=== PATIENT | female | born 1955 | race Caucasian/White ===

== ENCOUNTER 2023-11-09 06:22 | Outpatient (REF) | payer OTHER, SELFPAY ==
[2023-11-09 06:30] LABS: MANUAL DIFF FLAG NO
[2023-11-09 06:41] LABS: Basophils Percent Auto 0.3 % (0-2); Eosinophils Percent Auto 0.3 % (0-4); Hematocrit 31.5 % (37.0-47.0); Hemoglobin 10.2 g/dl (12.0-16.0); Imm Gran Abs Auto 0.24 X10*3/uL (0.00-0.03); Imm Gran Pct Auto 2.8 % (0.0-0.4); Lymphocytes Absolute Auto 1.4 X10*3/uL (1.2-4.9); Lymphocytes Percent Auto 16.1 % (20-40); Mean Corpuscular HGB Conc 32.4 g/dl (31.0-35.0); Mean Corpuscular Hemoglobin 33.8 pg (27.0-33.0); Mean Corpuscular Volume 104.3 fL (80.0-98.0); Mean Platelet Volume 9.9 fL (9.4-12.3); Monocytes Absolute Auto 0.9 X10*3/uL (0.1-1.2); Monocytes Percent Auto 10.3 % (2-11); Neutrophils Percent Auto 70.2 % (45-73); Platelet Count 186 X10*3/uL (160-400); Red Blood Count 3.02 X10*6/uL (4.20-5.50); Red Cell Distribution Width 17.7 % (11.0-16.0); White Blood Count 8.6 X10*3/uL (4.8-10.8)
[2023-11-09 07:47] LABS: Alanine Aminotransferase < 5 U/L (0-31); Albumin Level 2.6 g/dL (3.5-5.0); Alkaline Phosphatase 142 U/L (39-117); Anion Gap 16 (12-20); Aspartate Amino Transferase 13 U/L (5-31); Bilirubin Total 0.7 mg/dL (0.0-1.0); Blood Urea Nitrogen 31 mg/dL (9-16); Calcium 8.3 mg/dL (8.4-10.2); Carbon Dioxide 28 mmol/L (22-29); Chloride 98 mmol/L (96-108); Glucose Random 78 mg/dL (60-115); Potassium 3.8 mmol/L (3.3-5.1); Sodium 138 mmol/L (135-145); Total Protein 4.8 g/dL (6.5-8.0)
[2023-11-09 07:53] LABS: Estimated Glomerular Filt Rate 7
[2023-11-09 08:05] LABS: Estimated Average Glucose 82 mg/dL; Hemoglobin A1c % 4.5 % (<6.0)
== END 2023-11-09 06:23 | disposition home or self-care (01) ==
LOC: HO.MMNH2L 06:22
PROVIDERS: Visit Provider Family Medicine
DX: N18.6 End stage renal disease (principal); Z99.2 Dependence on renal dialysis
CPT/HCPCS: 36415; 80053; 83036; 85025

== ENCOUNTER 2023-11-15 06:44 | Outpatient (REF) | payer OTHER, SELFPAY ==
[2023-11-15 06:46] LABS: MANUAL DIFF FLAG NO
[2023-11-15 07:14] LABS: Basophils Percent Auto 0.3 % (0-2); Hemoglobin 11.3 g/dl (12.0-16.0); Imm Gran Abs Auto 0.12 X10*3/uL (0.00-0.03); Imm Gran Pct Auto 1.1 % (0.0-0.4); Lymphocytes Absolute Auto 1.6 X10*3/uL (1.2-4.9); Lymphocytes Percent Auto 14.1 % (20-40); Mean Corpuscular HGB Conc 31.4 g/dl (31.0-35.0); Mean Corpuscular Hemoglobin 33.8 pg (27.0-33.0); Mean Corpuscular Volume 107.8 fL (80.0-98.0); Mean Platelet Volume 9.5 fL (9.4-12.3); Monocytes Absolute Auto 1.3 X10*3/uL (0.1-1.2); Monocytes Percent Auto 11.7 % (2-11); Neutrophils Percent Auto 72.8 % (45-73); Platelet Count 268 X10*3/uL (160-400); Red Blood Count 3.34 X10*6/uL (4.20-5.50); Red Cell Distribution Width 17.6 % (11.0-16.0)
[2023-11-15 07:44] LABS: Anion Gap 20 (12-20); Blood Urea Nitrogen 56 mg/dL (9-16); Carbon Dioxide 25 mmol/L (22-29); Chloride 99 mmol/L (96-108); Potassium 4.3 mmol/L (3.3-5.1); Sodium 140 mmol/L (135-145)
[2023-11-15 07:45] LABS: Calcium 8.9 mg/dL (8.4-10.2); Glucose Random 77 mg/dL (60-115)
[2023-11-15 08:33] LABS: Estimated Glomerular Filt Rate 4
== END 2023-11-15 06:45 | disposition home or self-care (01) ==
LOC: HO.MMNH2L 06:44
PROVIDERS: Visit Provider Family Medicine
DX: Z99.2 Dependence on renal dialysis (principal)
CPT/HCPCS: 36415; 80048; 85025

== ENCOUNTER 2023-11-22 06:50 | Outpatient (REF) | payer OTHER, SELFPAY ==
[2023-11-22 06:07] LABS: MANUAL DIFF FLAG NO
[2023-11-22 06:57] LABS: Basophils Absolute Auto 0.1 X10*3/uL (0.0-0.2); Basophils Percent Auto 0.5 % (0-2); Hematocrit 37.2 % (37.0-47.0); Hemoglobin 11.5 g/dl (12.0-16.0); Imm Gran Abs Auto 0.29 X10*3/uL (0.00-0.03); Imm Gran Pct Auto 2.9 % (0.0-0.4); Lymphocytes Absolute Auto 1.3 X10*3/uL (1.2-4.9); Mean Corpuscular HGB Conc 30.9 g/dl (31.0-35.0); Mean Corpuscular Hemoglobin 34.3 pg (27.0-33.0); Mean Platelet Volume 9.5 fL (9.4-12.3); Monocytes Absolute Auto 1.2 X10*3/uL (0.1-1.2); Monocytes Percent Auto 11.5 % (2-11); Neutrophils Absolute Auto 7.2 x10*3/uL (2.0-8.3); Neutrophils Percent Auto 72.1 % (45-73); Platelet Count 240 X10*3/uL (160-400); Red Blood Count 3.35 X10*6/uL (4.20-5.50); Red Cell Distribution Width 17.3 % (11.0-16.0)
[2023-11-22 07:29] LABS: Anion Gap 24 (12-20); Blood Urea Nitrogen 56 mg/dL (9-16); Calcium 8.9 mg/dL (8.4-10.2); Carbon Dioxide 22 mmol/L (22-29); Chloride 97 mmol/L (96-108); Estimated Glomerular Filt Rate 5; Glucose Random 79 mg/dL (60-115); Potassium 5.3 mmol/L (3.3-5.1); Sodium 138 mmol/L (135-145)
== END 2023-11-22 06:51 | disposition home or self-care (01) ==
LOC: HO.MMNH2L 06:50
PROVIDERS: Visit Provider Family Medicine
DX: N18.6 End stage renal disease (principal); Z99.2 Dependence on renal dialysis
CPT/HCPCS: 36415; 80048; 85025

== ENCOUNTER 2023-11-24 05:52 | Outpatient (REF) | payer OTHER, SELFPAY ==
[2023-11-24 07:00] LABS: T4 Thyroxine 4.9 ug/dL (4.5-12.0); Thyroid Stimulating Hormone 8.13 uIU/mL (0.32-4.0)
[2023-11-24 07:05] LABS: Vitamin B12 843 pg/mL (200-900)
== END 2023-11-24 05:53 | disposition home or self-care (01) ==
LOC: HO.MMNH2L 05:52
PROVIDERS: Visit Provider Family Medicine
DX: E03.8 Other specified hypothyroidism (principal); N18.6 End stage renal disease
CPT/HCPCS: 36415; 82607; 84436; 84443; 84481